=== PATIENT | male | born 1975 | race Caucasian/White ===

== ENCOUNTER 2016-07-28 22:11 | Emergency (ER) | payer SELFPAY ==
[~2016-07-28] VITALS: Ht 160 cm; Wt 86.2 kg
[2016-07-28 22:34] VITALS: BP 140/80
--- NOTE | 2016-07-29 01:40 | NUR ---
To Bed 3
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
[2016-07-29] MEDS ORDERED: LIDOCAINE/EPI 1% 1:100000 20 ML VIAL INJ ONE ×2 (04:00→04:03)
[2016-07-29] MEDS ORDERED: KETOROLAC 30 MG/ML VIAL IM ONE (04:00)
[2016-07-29] MEDS ORDERED: HYDROcodone/APAP 5/325 MG 1 TAB TAB PO ONE (04:00)
[2016-07-29] MEDS ORDERED: NEOMYCIN/POLYMYXIN/BACITRACIN 0.9 GM/1 PKT TP ONE (04:20)
--- NOTE | 2016-07-29 04:55 | NUR ---
Patient discharged with v/s stable. Written and verbal after care instructions given and explained. Patient alert, oriented and verbalized understanding of instructions. Ambulatory with CRUTCHES. All questions addressed prior to discharge. ID band removed. Patient advised to follow up with PMD. Rx of NORCO, NAPROSYN, KEFLEX given. Patient educated on indication of medication including possible reaction and side effects. Opportunity to ask questions provided and answered.
[2016-07-29 05:00] VITALS: BP 130/75
== END 2016-07-29 04:55 | disposition home or self-care (01) ==
LOC: MED 22:11
DX: S92.401A Displaced unspecified fracture of right great toe, initial encounter for closed fracture (principal); S92.531A Displaced fracture of distal phalanx of right lesser toe(s), initial encounter for closed fracture; S91.114A Laceration without foreign body of right lesser toe(s) without damage to nail, initial encounter; W20.8XXA Other cause of strike by thrown, projected or falling object, initial encounter; Y93.89 Activity, other specified; Y92.89 Other specified places as the place of occurrence of the external cause; Y99.8 Other external cause status
CPT/HCPCS: 11730; 12001; 73630; 73660; 90471; 90715; 96372; 99284; J1885; Q0092; 11750; J2001